=== PATIENT | male | born 1985 | race Caucasian/White ===

== ENCOUNTER 2019-10-06 15:23 | Emergency (ER) | payer SELFPAY ==
[~2019-10-06] VITALS: Ht 170.2 cm; Wt 90.0 kg
[2019-10-06] MEDS ORDERED: KETOROLAC TROMETHAMINE 30 MG/ML VIAL IM ONE (16:15)
[2019-10-06] MEDS ORDERED: HYDROCODONE/ACETAMINOPHEN 5-325 MG TABLET PO ONE (16:15)
[2019-10-06] MEDS ORDERED: AMOXICILLIN TRIHYDRATE 250 MG CAPSULE PO ONE (16:15)
[2019-10-06 16:50] VITALS: BP 127/79
== END 2019-10-06 17:45 | disposition home or self-care (01) ==
LOC: EMS 15:25
DX: K08.89 Other specified disorders of teeth and supporting structures (principal); L97.519 Non-pressure chronic ulcer of other part of right foot with unspecified severity; F12.90 Cannabis use, unspecified, uncomplicated; F15.90 Other stimulant use, unspecified, uncomplicated; F17.210 Nicotine dependence, cigarettes, uncomplicated
CPT/HCPCS: 29515; 96372; 99283; J1885